=== PATIENT | male | born 1945 | race Caucasian/White ===

== ENCOUNTER → 2020-07-26 11:12 | Outpatient (BNVA) | payer BC, SELFPAY | PROVIDERS: Family Provider Family Medicine; PCP Physician Assistant Medical; Visit Provider Internal Medicine Rheumatology | DX: R76.8 Other specified abnormal immunological findings in serum (principal); R21 Rash and other nonspecific skin eruption; Z79.899 Other long term (current) drug therapy | CPT/HCPCS: 36415; 86160; 86162; 86235; 86255; 86376; 99203 ==

== ENCOUNTER → 2023-03-24 13:48 | Outpatient (BNVA) | payer BC, SELFPAY | PROVIDERS: Family Provider Family Medicine; PCP Nurse Practitioner Family; Visit Provider Nurse Practitioner Family | DX: R53.83 Other fatigue (principal); E55.9 Vitamin D deficiency, unspecified; Z79.899 Other long term (current) drug therapy; Z12.5 Encounter for screening for malignant neoplasm of prostate; Z13.6 Encounter for screening for cardiovascular disorders; R21 Rash and other nonspecific skin eruption | CPT/HCPCS: 80053; 80061; 81003; 82306; 83036; 84443; 85025; 86038; G0103 ==

== ENCOUNTER → 2023-08-12 14:12 | Outpatient (BNVA) | payer BC, SELFPAY | PROVIDERS: Family Provider Family Medicine; PCP Nurse Practitioner Family; Visit Provider Nurse Practitioner Family | DX: R06.02 Shortness of breath (principal) | CPT/HCPCS: 71046 ==

== ENCOUNTER → 2023-10-12 13:46 | Outpatient (BNVA) | payer BC, SELFPAY | PROVIDERS: Family Provider Family Medicine; PCP Nurse Practitioner Family; Visit Provider Nurse Practitioner Family | DX: M79.672 Pain in left foot (principal); M25.512 Pain in left shoulder; M77.32 Calcaneal spur, left foot | CPT/HCPCS: 73030; 73630 ==

== ENCOUNTER 2023-10-30 13:45 | Outpatient (CLI) | payer BC, SELFPAY ==
--- NOTE | 2023-10-30 13:28 | XRR_ITS ---
PROCEDURE INFORMATION: Exam: XR Left Ribs Exam date and time: 10/30/2023 1:34 PM Age: 78 years old Clinical indication: Other: Thoracic spine pain; Additional info: M54.6 - pain in thoracic spine TECHNIQUE: Imaging protocol: Radiologic exam of the left ribs. Views: 2 views. COMPARISON: CR XR chest 2V* [id number] 08/12/2023 3:07 PM FINDINGS: Bones/joints: Degenerative changes in the spine and shoulders. Stable old, healed fracture of the posterolateral right 7th rib. Moderate degenerative changes of the right and left sacroiliac joints. No acute fracture. No dislocation. Bones are mildly osteopenic. Lungs: Stable calcified granulomas in both lungs. Organs: Surgical clips in the right upper quadrant consistent with a previous cholecystectomy. Soft tissues: No soft tissue swelling. No radiopaque foreign body. XR/XR ribs LT 2V* [id number] IMPRESSION: 1. No acute cardiopulmonary process. 2. No acute fracture. 3. CT scan of the chest with contrast would be recommended if there is continuing clinical concern for thoracic injury. 4. Incidental/nonacute findings are listed in the report.
--- NOTE | 2023-10-30 13:28 | XRR_ITS ---
PROCEDURE INFORMATION: Exam: XR Thoracic Spine Exam date and time: 10/30/2023 1:34 PM Age: 78 years old Clinical indication: Pain in thoracic spine; Additional info: M54.6 - pain in thoracic spine TECHNIQUE: Imaging protocol: Radiologic exam of the thoracic spine. Views: 3 views. COMPARISON: CR XR ribs LT 2V* [id number] 10/30/2023 1:34 PM FINDINGS: Bones/joints: The vertebral body heights and alignment are maintained. There is thoracic kyphosis noted. There is axko-fy-kqakjwuc degenerative disc disease. There is mild levoscoliosis. Soft tissues: Unremarkable. XR/XR thoracic spine 3V* [id number] IMPRESSION: [id number] degenerative disc disease.
--- NOTE | 2023-10-30 13:28 | XRR_ITS ---
PROCEDURE INFORMATION: Exam: XR Lumbosacral Spine Exam date and time: 10/30/2023 1:34 PM Age: 78 years old Clinical indication: Low back pain; Additional info: M54.16 - radiculopathy, lumbar region TECHNIQUE: Imaging protocol: Radiologic exam of the lumbosacral spine. Views: 6 or more views. Including flexion and extension views. COMPARISON: CR XR thoracic spine 3V* [id number] 10/30/2023 1:34 PM FINDINGS: Bones/joints: There is grade 1 anterolisthesis of L5-S1 which does not significantly change on the flexion view but appears to mildly improve on the extension view. Mild compression deformities are seen at L1 and L2. Otherwise the vertebral body heights and alignment are maintained. There is mild multilevel degenerative disc disease. Soft tissues: Unremarkable. XR/XR lumbar spine 6V w f/e [id number] IMPRESSION: 1. Mild compression deformities at L1 and L2. 2. Grade 1 anterolisthesis of L5-S1 which does appear to significantly change flexion view but appears to mildly improved on extension view.
--- NOTE | 2023-10-30 13:45 | MR_ITS ---
WS: [id number] MRI HEAD WITHOUT CONTRAST TECHNIQUE: Sagittal T1, T2 axial, T2 axial FLAIR, axial and coronal T1 images, axial susceptibility w eighted imaging, axial diffusion weighted images, and coronal T2 images were obtained. CLINICAL INFORMATION: R51.9 - Headache, unspecified COMPARISON: None. FINDINGS: Some images degraded by motion and dental artifact. No evidence of restricted diffusion to suggest acute ischemia. Ventricular system and basilar cistern s are patent. Mild small vessel changes. Mild parenchymal volume loss. Normal posterior fossa. Normal vascular flow voids at the skull base. No extra-axial fluid collections. No evidence of mass or mass effect. Small retention cyst in the LEFT maxillary sinus. Mild mucosal thickening in the ethmoid air cells. Mastoid air cells are well aerated. Normal optic ch iasm and pituitary infundibulum. Moderate symmetric atrophy temporal lobes and hippocampal formations . No hemosiderin on the susceptibly weighted images. MR/MR head wo con* [id number] IMPRESSION: 1. No evidence of restricted diffusion to suggest acute ischemia. 2. Mild small vessel changes with mild parenchymal volume loss. 3. No hemosiderin on the susceptibly weighted images. 4. Moderate symmetric atrophy temporal lobes and hippocampal formations. 5. No other acute findings.
== END 2023-10-30 13:46 | disposition home or self-care (01) ==
PROVIDERS: Family Provider Family Medicine; PCP Nurse Practitioner Family; Visit Provider Nurse Practitioner Family
DX: R51.9 Headache, unspecified (principal); K11.7 Disturbances of salivary secretion; M54.16 Radiculopathy, lumbar region; G89.29 Other chronic pain; G31.9 Degenerative disease of nervous system, unspecified; G93.81 Temporal sclerosis; M51.34 Other intervertebral disc degeneration, thoracic region; Z90.49 Acquired absence of other specified parts of digestive tract; M46.1 Sacroiliitis, not elsewhere classified; M43.16 Spondylolisthesis, lumbar region
CPT/HCPCS: 70551; 71100; 72072; 72114

== ENCOUNTER 2023-12-29 10:04 | Outpatient (CLI) | payer BC, SELFPAY ==
--- NOTE | 2023-12-29 10:16 | PETR_ITS ---
PROCEDURE INFORMATION: Exam: PET/CT Skull Base to Mid-thigh Exam date and time: 12/29/2023 11:08 AM Age: 78 years old Clinical indication: Condition or disease; Condition/disease: Monoclonal gammopahty of unknown origin; Additional info: [facility] LABS AND CLINICAL REPORTS: Glucose: 102 mg/dl Treatment strategy for malignancy (PET staging): Initial Staging (PI) TECHNIQUE: Imaging protocol: Following at least four-hour fasting and following the injection of radiopharmaceutical, low dose CT images were obtained. Then, PET images were obtained. Attenuation corrected images were constructed using the CT scan. Fused images of PET and CT were reviewed. The standardized uptake values (SUV) reported below are maximum values within a region of interest, expressed in gm/ml. Exam includes orbital meatal line to mid-thigh. Radiopharmaceutical: 10.7 mCi F-18 FDG (Fluorodeoxyglucose), IV. Time of imaging post radiopharmaceutical administration: 1 hour Injection site: Right hand COMPARISON: MRI brain 10/30/2023, CR XR lumbar spine 6V w f/e [id number] 10/30/2023 1:34 PM, x-ray thoracic spine 10/30/2023, left rib x-ray series 10/30/2023 FINDINGS: Brain: Visualized brain has normal physiologic uptake. Salivary glands: Posterior to the inferior left parotid gland, an ovoid region of elevated uptake is noted, SUV max 14.5 on image 399, without a well-defined lesion on the CT images. Pharynx: Uptake in the bilateral palatine tonsils is likely physiologic or inflammatory, SUV max 4.9 on the right and 3.8 on the left, without definitive evidence of correlating lesions on the CT images. Larynx: No abnormal uptake. Lungs, pleura and trachea: No abnormal uptake. Bilateral calcified granulomas are identified in the lungs. Mild dependent streaky density in the lungs is consistent with atelectasis. A noncalcified right middle lobe solid nodule measures 0.7 x 0.4 cm on series 202, image 306 without elevated uptake. Heart: Normal physiologic uptake. Mediastinal space: No abnormal uptake. Liver: No abnormal uptake. Gallbladder and biliary ducts: No abnormal uptake. Cholecystectomy clips are present. Pancreas: No abnormal uptake. Spleen: No abnormal uptake. Calcified granuloma in the spleen is noted. Adrenal glands: No abnormal uptake. Kidneys and ureters: Normal physiologic uptake. Stomach and bowel: Uptake in the stomach and bowel appears physiologic. There are scattered colonic diverticula. Reproductive: There is moderate enlargement of the prostate gland, with areas of mild heterogeneous uptake, SUV max 3.3 on PET series 301, image 296. Vasculature: No abnormal uptake. Lymph nodes: A lymph node medial to the right parotid gland and medial to the right mandibular body measures 1.6 x 1.0 cm on image 382, SUV max 3.1. A rounded focus of soft tissue density posterior to the hyoid bone on the right possibly representing a lymph node measures 1.1 cm on image 369, SUV max 4.7. Mild uptake is identified within mediastinal and hilar lymph nodes. For example, a cluster of lymph nodes in the aortopulmonary window, each of which measures less than 1 cm noted on series 202, image 326, SUV max 2.9. A focus of uptake in the right hilar region, likely within an 8 mm lymph node on image 317 is present, SUV max 4.3. Mild uptake in the left hilar region is noted, SUV max 3.1 on image 316, without well-defined lymph nodes. Small benign-appearing non radiotracer avid calcified left hilar and subcarinal lymph nodes are present. Skeleton: Degenerative changes in the spine are present. Soft tissues: Mild uptake in the proximal right hamstring tendons is likely inflammatory. METRICS: Mediastinal blood pool: SUV max 2.4, SUV mean 1.8 PET/PET skull to thigh INIT [id number] IMPRESSION: 1. No evidence of radiotracer avid osseous lesions. 2. Elevated uptake along the posterior left parotid gland is noted, with the degree of uptake concerning for a malignant parotid neoplasm. This region is not well assessed on the noncontrast CT images. The possibility of a malignant lymph node in this location cannot be excluded. Consider CT or MRI soft tissue neck with and without contrast for further evaluation. 3. Mild uptake in a right submandibular lymph node is present, and there is uptake within a soft tissue density nodule posterior to the hyoid bone on the right which may also be within a lymph node. This uptake may be inflammatory or infectious. A malignant etiology cannot be entirely excluded. 4. Mild uptake within non pathologically enlarged mediastinal and hilar lymph nodes is noted, likely infectious or inflammatory in etiology. A malignant etiology is less likely. 5. A non radiotracer avid right middle lobe nodule is present. Lack of uptake favors a benign etiology, however assessment of small nodules can be limited by PET-CT. 6. Enlargement of the prostate gland, with regions of mild uptake which are indeterminate. Assessment of the prostate gland is limited by PET-CT. Correlation with clinical findings/PSA level is recommended. 7. Additional nonurgent findings as detailed above. COMMENTS: Image numbers provided in the body of the report refer to the axial CT series 202 unless otherwise stated.
== END 2023-12-29 10:05 | disposition home or self-care (01) ==
PROVIDERS: Family Provider Family Medicine; PCP Nurse Practitioner Family; Visit Provider Internal Medicine Medical Oncology
DX: D47.2 Monoclonal gammopathy (principal); J84.10 Pulmonary fibrosis, unspecified; Z98.890 Other specified postprocedural states; J94.8 Other specified pleural conditions; J98.11 Atelectasis; D73.89 Other diseases of spleen; K57.30 Diverticulosis of large intestine without perforation or abscess without bleeding; N40.0 Benign prostatic hyperplasia without lower urinary tract symptoms; I89.8 Other specified noninfective disorders of lymphatic vessels and lymph nodes
CPT/HCPCS: 78815; A9552

== ENCOUNTER 2024-02-10 14:56 | Outpatient (CLI) | payer BC, SELFPAY ==
--- NOTE | 2024-02-10 15:30 | US_ITS ---
WS: [id number] INDICATION: Salivary gland PET/CT TECHNIQUE: Ultrasound salivary glands FINDINGS: Previous outside from 12/29/2023 reported elevated uptake along the posterior LEFT parotid g land concerning for parotid neoplasm. Additional areas of uptake in a RIGHT submandibular lymph node and a nodule near the hyoid bone also reported. The small FDG avid areas are not visualized on today's ultrasound. There are a few slightly prominent indeterminate lymph nodes bilaterally. These may be infectious or inflammatory with preserved fatty hilum. Findings would be better assessed with contrast-enhanced CT neck if additional imaging indicat ed. Largest lymph nodes measure up to 1.3 cm with preserved fatty hilum. US/US soft tissue head neck [id number] IMPRESSION: See discussion above
== END 2024-02-10 14:57 | disposition home or self-care (01) ==
LOC: RAD 14:57
PROVIDERS: Family Provider Family Medicine; PCP Nurse Practitioner Family; Visit Provider Nurse Practitioner Family
DX: K11.9 Disease of salivary gland, unspecified (principal); R59.0 Localized enlarged lymph nodes
CPT/HCPCS: 76536

== ENCOUNTER → 2024-05-24 11:47 | Outpatient (BNVA) | payer BC, SELFPAY | PROVIDERS: Family Provider Family Medicine; PCP Nurse Practitioner Family; Visit Provider Nurse Practitioner Family | DX: K14.6 Glossodynia (principal); Z79.899 Other long term (current) drug therapy | CPT/HCPCS: 80053; 83883; 84155; 84165; 84439; 84443; 85007; 85027 ==

== ENCOUNTER → 2024-07-13 10:50 | Outpatient (BNVA) | payer MEDICARE, SELFPAY | PROVIDERS: Family Provider Family Medicine; PCP Nurse Practitioner Family; Visit Provider Nurse Practitioner Family | DX: R76.8 Other specified abnormal immunological findings in serum (principal); L30.9 Dermatitis, unspecified; D47.2 Monoclonal gammopathy; E78.2 Mixed hyperlipidemia | CPT/HCPCS: 80053; 80061; 85025; 85651; 86140; 86160; 86162; 86235; 86255; 86376 ==

== ENCOUNTER 2024-08-15 14:42 | Outpatient (CLI) | payer MEDICARE, SELFPAY ==
[2024-08-16 08:04] LABS: SS A Ro Sjogrens Antibody <1.0 NEG AI (<1.0 NEG); SS-B/LA IGG <1.0 NEG AI (<1.0 NEG)
[2024-08-16 20:10] LABS: PTT-LA-Screen 37 sec (< OR = 40)
== END 2024-08-15 14:43 | disposition home or self-care (01) ==
PROVIDERS: Family Provider Family Medicine; PCP Nurse Practitioner Family; Visit Provider Nurse Practitioner Family
DX: R76.8 Other specified abnormal immunological findings in serum (principal); L30.9 Dermatitis, unspecified; D47.2 Monoclonal gammopathy
CPT/HCPCS: 36415; 85613; 85730; 86235

== ENCOUNTER → 2024-09-05 12:44 | Outpatient (BNVA) | payer MEDICARE, SELFPAY | PROVIDERS: Family Provider Family Medicine; PCP Nurse Practitioner Family; Visit Provider Podiatrist Foot & Ankle Surgery | DX: Q82.8 Other specified congenital malformations of skin (principal) | CPT/HCPCS: 17110; 73630; 99204 ==

== ENCOUNTER → 2024-09-22 11:52 | Outpatient (BNVA) | payer MEDICARE, SELFPAY | PROVIDERS: Family Provider Family Medicine; PCP Nurse Practitioner Family; Referring Provider Nurse Practitioner Family; Visit Provider Psychiatry & Neurology Neurology | DX: E55.9 Vitamin D deficiency, unspecified (principal); R76.8 Other specified abnormal immunological findings in serum; M79.2 Neuralgia and neuritis, unspecified; L30.9 Dermatitis, unspecified; K11.9 Disease of salivary gland, unspecified; H61.20 Impacted cerumen, unspecified ear; L98.9 Disorder of the skin and subcutaneous tissue, unspecified | CPT/HCPCS: 36415; 81381; 82306; 82607; 82746; 83735; 83921; 84207; 84425; 84591; 86431; 86592; 86780; 99203 ==

== ENCOUNTER → 2024-10-31 13:02 | Outpatient (BNVA) | payer MEDICARE, SELFPAY | PROVIDERS: Family Provider Family Medicine; PCP Nurse Practitioner Family; Visit Provider Podiatrist Foot & Ankle Surgery | DX: M79.672 Pain in left foot (principal); L84 Corns and callosities; Q82.8 Other specified congenital malformations of skin | CPT/HCPCS: 99213 ==

== ENCOUNTER 2024-11-03 14:05 | Outpatient (CLI) | payer MEDICARE, SELFPAY ==
--- NOTE | 2024-11-03 14:30 | MR_ITS ---
WS: [id number] MRI NECK WITH AND WITHOUT CONTRAST CONTRAST. COMPARISON: MRI head 10/30/2023, soft tissue ultrasound 01/30/2024, PET/CT 12/29/2023 Multiplanar, multisequence imaging is performed with and without contrast. MultiHance 17 mL. There is some artifact obscuring details of the anterior neck secondary to dental amalgam. Symmetric size of the parotid glands. No obvious signal abnormality or enhancement in the LEFT parotid gland as indicated by the PET/CT. There is a very subtle area of lower signal on all sequences measuring 7 mm, but it does not enhance and it is very subtle. As visualized the submandibular glands are normal. RIGHT submandibular gland is obscured by artifact. No abnormality noted involving the oropharynx. No mass identified. No abnormal enhancement. Vocal cords are normal. No cervical chain lymphadenopathy. Small caliber distal LEFT vertebral artery. Mild cervical spondylitic disease. Disc osteophyte complex with mild encroachment upon the cervical cord at C3-4, C4-5, C5-6 and C6-7. No signal abnormality within the cord. MR/MR orbit face neck wo/w* [id number] IMPRESSION: 1. Very subtle area measuring 7 mm of decreased signal in the deep LEFT paroti d gland does not enhance. This is very nonspecific and may be normal mild heter ogeneity of the parotid gland. Low signal does appear to correspond to the loca tion of the PET/CT positive lesion. No increase in size since 12/29/2023. Consid er continued close imaging follow-up. Consider follow-up CT or MRI with contras t in 6 months. 2. No cervical chain lymphadenopathy.
[2024-11-03] MEDS: gadobenate dimeglumine 20 mL vial 17 ML IV (15:31)
== END 2024-11-03 14:06 | disposition home or self-care (01) ==
PROVIDERS: Family Provider Family Medicine; PCP Nurse Practitioner Family; Visit Provider Psychiatry & Neurology Neurology
DX: K11.9 Disease of salivary gland, unspecified (principal); D47.2 Monoclonal gammopathy
CPT/HCPCS: 70543

== ENCOUNTER → 2025-03-21 16:09 | Outpatient (BNVA) | payer MEDICARE, SELFPAY | PROVIDERS: Family Provider Family Medicine; PCP Nurse Practitioner Family; Visit Provider Nurse Practitioner Family | DX: Z12.5 Encounter for screening for malignant neoplasm of prostate (principal); E55.9 Vitamin D deficiency, unspecified; I10 Essential (primary) hypertension; W57.XXXA Bitten or stung by nonvenomous insect and other nonvenomous arthropods, initial encounter; L30.9 Dermatitis, unspecified; E78.5 Hyperlipidemia, unspecified; R53.83 Other fatigue; D64.9 Anemia, unspecified; Z79.899 Other long term (current) drug therapy | CPT/HCPCS: 73030; 73080; 80053; 80061; 81003; 82306; 82607; 82728; 82746; 83036; 83550; 84443; 85025; 86003; 86008; 86160; 86618; 86666; 86668; 86757; G0103 ==

== ENCOUNTER 2025-03-30 14:24 | Outpatient (CLI) | payer MEDICARE, SELFPAY ==
--- NOTE | 2025-03-30 15:15 | MRR_ITS ---
PROCEDURE INFORMATION: Exam: MR Left Upper Extremity Joint Without Contrast; Shoulder Exam date and time: 03/30/2025 2:46 PM Age: 79 years old Clinical indication: Prior surgery; Surgery date: 6+ months; Surgery type: Prior HX lt rtc repair; Left shoulder and elbow pain, no specific injury. Pain shoots from shoulder down arm. ; Additional info: Z98.890 - other specified postprocedural states TECHNIQUE: Imaging protocol: Magnetic resonance imaging of the left upper extremity without contrast. Exam focused on the shoulder. COMPARISON: CR XR shoulder LT min 2V* [id number] 03/21/2025 5:36 PM FINDINGS: Bones/joints: Mild hypertrophic degenerative changes of the acromioclavicular joint with a small joint effusion. Glenoid labrum: Unremarkable. No evidence of tear. Supraspinatus tendon: Near full-thickness increased T2 signal in the humeral surface distal supraspinatus tendon. No tendon rupture or retraction. No muscle atrophy. Infraspinatus tendon: Unremarkable. No evidence of tear. Subscapularis tendon: Unremarkable. No evidence of tear. Teres minor tendon: Unremarkable. No evidence of tear. Tendon of biceps brachii: Unremarkable. No evidence of tear. Glenohumeral ligaments: Unremarkable. Soft tissues: Unremarkable. MR/MR shoulder LT wo con* [id number] IMPRESSION: 1. Tendinopathy in the supraspinatus with a near full-thickness humeral surface tear in the distal tendon. 2. Hypertrophic degenerative changes in the acromioclavicular joint
== END 2025-03-30 14:25 | disposition home or self-care (01) ==
LOC: RAD 14:25
PROVIDERS: Family Provider Family Medicine; PCP Nurse Practitioner Family; Visit Provider Nurse Practitioner Family
DX: R76.89 Other specified abnormal immunological findings in serum (principal); Z98.890 Other specified postprocedural states; M75.112 Incomplete rotator cuff tear or rupture of left shoulder, not specified as traumatic; M19.011 Primary osteoarthritis, right shoulder; M25.411 Effusion, right shoulder
CPT/HCPCS: 73221

== ENCOUNTER 2025-04-05 15:52 | Outpatient (CLI) | payer MEDICARE, SELFPAY ==
--- NOTE | 2025-04-05 15:58 | MRR_ITS ---
PROCEDURE INFORMATION: Exam: MR Left Upper Extremity Joint Without Contrast; Elbow Exam date and time: 04/05/2025 4:02 PM Age: 79 years old Clinical indication: Pain; Elbow; Left; Additional info: R76.8 - other specified abnormal immunological findings i. . . TECHNIQUE: Imaging protocol: Magnetic resonance imaging of the left upper extremity without contrast. Exam focused on the elbow. COMPARISON: CR XR elbow LT min 3V* [id number] 03/21/2025 5:12 PM FINDINGS: Bones/joints: Unremarkable. No bone abnormalities. Articular cartilage is normal. No joint effusion. Ulnar (medial) collateral ligament: Unremarkable. No tear. Radial collateral ligament of the elbow: There is a partial tear of the radial collateral ligament, image 11 series 801. Increased T2 signal in the attachment zone of the lateral ulnar collateral ligament consistent with low to moderate grade sprain. Annular ligament of the radius: Unremarkable. No tear. Tendon of the biceps brachii: Unremarkable. No tear. Tendon of the brachialis: Unremarkable. No tear. Triceps tendon: Unremarkable. No tear. Common flexor tendon: Unremarkable. No tear. Common extensor tendon: There is a moderate grade tear of the insertion of the common extensor tendon with subchondral bone marrow edema in some thickening of the proximal common extensor tendon. Soft tissues: Unremarkable. MR/MR elbow LT wo con* [id number] IMPRESSION: 1. Moderate grade tear of the insertion of the common extensor tendon with tendinosis and subchondral bone marrow edema in the distal humerus. 2. Moderate grade partial tear of the radial collateral ligament near its attachment to the humerus. 3. Low to moderate grade sprain of the proximal lateral ulnar collateral ligament.
== END 2025-04-05 15:53 | disposition home or self-care (01) ==
LOC: RAD 15:53
PROVIDERS: Family Provider Family Medicine; PCP Nurse Practitioner Family; Visit Provider Nurse Practitioner Family
DX: R76.89 Other specified abnormal immunological findings in serum (principal); M54.6 Pain in thoracic spine; G89.29 Other chronic pain; S53.432A Radial collateral ligament sprain of left elbow, initial encounter; S53.442A Ulnar collateral ligament sprain of left elbow, initial encounter; X58.XXXA Exposure to other specified factors, initial encounter; M77.12 Lateral epicondylitis, left elbow
CPT/HCPCS: 73221